=== PATIENT | male | born 1990 | race Asian ===

== ENCOUNTER 2018-10-02 18:42 | Emergency (ER) | payer BC ==
[~2018-10-02] VITALS: Ht 160 cm; Wt 95.3 kg
[2018-10-02 19:32] VITALS: BP 130/77; TEMP 98.1
== END 2018-10-02 19:35 | disposition home or self-care (01) ==
LOC: ED 18:42
DX: S93.401A Sprain of unspecified ligament of right ankle, initial encounter (principal); X50.1XXA Overexertion from prolonged static or awkward postures, initial encounter
CPT/HCPCS: 96372; 99283; J1885